=== PATIENT | female | born 1965 | race African-American/Black ===

== ENCOUNTER → 2018-10-04 10:00 | Outpatient (CLI) | payer OTHER | END | disposition home or self-care (01) | LOC: D.RAD 10:00 | DX: J44.9 Chronic obstructive pulmonary disease, unspecified (principal); R13.10 Dysphagia, unspecified ==

== ENCOUNTER 2018-10-10 07:20 | Day surgery (SDC) | payer OTHER ==
[2018-10-09 11:37] LABS: HEMOGLOBIN 13.2 g/dL (12-16); MCH 27.6 pg (26.0-34.0); MCV 83.7 fL (80.0-100.0); MEAN PLATELET VOLUME 9.9 fL (7.4-10.4); RBC 4.78 10x6/uL (4.00-5.40); RDW 13.8 % (11.5-14.5); WBC 5.2 10x3/uL (4.8-10.8)
[~2018-10-10] VITALS: Ht 170.2 cm; Wt 102.5 kg
[~2018-10-10 07:20] MED LIST: CYCLOBENZAPRINE10 MG PO; EZFE 200200 MG PO; HYDROCHLOROTHIA25 MG PO; REGLAN10 MG PO; ROBAXIN500 MG PO; ULTRAM50 MG PO
[2018-10-10 07:54] VITALS: BP 137/81; Ht 170.2 cm; Wt 102.5 kg
[2018-10-10] MEDS ORDERED: HYDROCODON-ACE1 EAC7 PO (12:25)
--- NOTE | 2018-10-10 13:35 | NUR ---
REC'D FROM RR. NO FAMILY CURRENTLY AT BEDSIDE. RABIAI STRIPS CDI TO ABD. GRAPE JUICE BROUGHT TO PT.
--- NOTE | 2018-10-10 14:05 | NUR ---
FAMILY AT BEDSIDE. FL TRAY BROUGHT TO PT. NO C/O VOICED.
--- NOTE | 2018-10-10 14:35 | NUR ---
TOLERATED DIET. STILL HAS NOT VOIDED.
--- NOTE | 2018-10-10 14:41 | NUR ---
DR SEGUNDO IN TALKING WITH PATIENT AND FAMILY.
--- NOTE | 2018-10-10 15:45 | NUR ---
AMBULATED TO BATHROOM AND VOIDED WITHOUT DIFFICULTY. IV DC'D WITH CATHETER INTACT. SMALL AMOUNT OF DRAINAGE FROM INCISION AT [place] AREA. DRESSING APPLIED TO SITE.
--- NOTE | 2018-10-10 15:50 | NUR ---
WRITTEN AND VERBAL DC INST. GIVEN TO PT. VERBALIZED UNDERSTANDING.
--- NOTE | 2018-10-10 16:05 | NUR ---
DC'D HOME WITH FAMILY VIA PRIVATE VEHICLE. TAKEN TO VEHICLE VIA WC. STABLE AT TIME OF DC.
== END 2018-10-10 16:05 | disposition home or self-care (01) ==
LOC: D.OPS 07:20 → D.PAN 09:30 → D.OPS 16:05
PROVIDERS: Anesthesiology
DX: Z46.51 Encounter for fitting and adjustment of gastric lap band (principal); E66.01 Morbid (severe) obesity due to excess calories; I10 Essential (primary) hypertension; R13.10 Dysphagia, unspecified; K21.9 Gastro-esophageal reflux disease without esophagitis; Z68.35 Body mass index [BMI] 35.0-35.9, adult; Z01.812 Encounter for preprocedural laboratory examination

== ENCOUNTER → 2018-10-30 08:34 | Outpatient (CLI) | payer OTHER ==
[~2018-10-30] VITALS: Ht 170.2 cm; Wt 98.0 kg
[~2018-10-30 08:34] MED LIST changes: +HYDROCODON-ACE1 EAC7 PO
[2018-10-30 10:18] VITALS: Ht 170.2 cm; Wt 98.0 kg
== END | disposition home or self-care (01) ==
LOC: D.FANS 08:34
DX: E66.01 Morbid (severe) obesity due to excess calories (principal)

== ENCOUNTER 2018-12-11 08:20 | Outpatient (CLI) | payer OTHER ==
[2018-10-30 10:18] VITALS: BMI 33.8
== END 2018-12-11 09:25 | disposition home or self-care (01) ==
LOC: D.OPS 08:20 → D.RAD 10:00 → D.OPS 12-13 11:00
PROVIDERS: ATTEND Surgery
DX: E66.01 Morbid (severe) obesity due to excess calories (principal); Z01.812 Encounter for preprocedural laboratory examination

== ENCOUNTER 2019-05-07 17:58 | Inpatient (IN) | payer OTHER ==
[~2019-05-07] VITALS: Ht 170.2 cm; Wt 110.9 kg
[2019-05-10] MEDS ORDERED: K-TAB10 MEQ PO (09:44)
[2019-05-10 10:33] LABS: HEMOGLOBIN 13.9 g/dL (12-16); MCH 27.6 pg (26.0-34.0); MCHC 33.9 g/dL (31.0-37.0); MCV 81.5 fL (80.0-100.0); MEAN PLATELET VOLUME 9.5 fL (7.4-10.4); RBC 5.03 10x6/uL (4.00-5.40); RDW 14.6 % (11.5-14.5); WBC 6.1 10x3/uL (4.8-10.8)
[2019-05-10 10:41] LABS: CALC OSMOLALITY 274 mosm/kg (275-300); CALCIUM 9.1 mg/dL (8.5-10.1); CARBON DIOXIDE 29.5 mmol/L (21.0-32.0); CHLORIDE - SERUM 100 mmol/L (98-107); CREATININE - SERUM 0.8 mg/dL (0.6-1.3); GLUCOSE 95 mg/dL (74-106); POTASSIUM - SERUM 3.5 mmol/L (3.5-5.1); SODIUM 138 mmol/L (136-145); UREA NITROGEN 11 mg/dL (7-18); eGFR NON AFRICAN AMERICAN 79 mL/min (90-120)
[2019-05-13 06:39] VITALS: BP 152/96; BMI 39.5
--- NOTE | 2019-05-13 12:09 | NUR ---
REC'D TO ROOM 2225 AWAKE AND ALERT. RESP EVEN AND UNLABORED WITH NO DISTRESS NOTED. CAN EXPRESS NEEDS AND WANTS. STERI STRIPS NOTED TO 6 LAPS SITED TO ABD. C/O ABD PAIN AT THIS TIME. ASSESSMENT COMPLETED. VS PER PROTOCOL. C/L UIN REACH AT BEDSIDE.
[2019-05-13 12:19] VITALS: BP 175/96
--- NOTE | 2019-05-13 13:18 | NUR ---
PRODUCTION EXPEDITER STARTED D/T C/O ABD PAIN RATING 8/10 ON PAIN SCALE. C/L AND AT BEDSIDE.
[2019-05-13 13:48] VITALS: BP 123/74; Ht 170.2 cm; Wt 110.9 kg
[2019-05-13 17:18] VITALS: BP 134/89
[2019-05-13 21:15] VITALS: BP 124/76
[2019-05-14 01:53] VITALS: BP 106/69
--- NOTE | 2019-05-14 03:48 | NUR ---
I have reviewed this patient and I concur with the Shift Assessment completed by the Licensed Practical Nurse today this shift.
[2019-05-14 05:36] VITALS: BP 107/72
--- NOTE | 2019-05-14 05:50 | NUR ---
AMBULATED LATE IN THE EVENING THIS SHIFT, RESTED WELL AFTERWARDS, ONLY VOICED CONCERN ONCE WHEN WASTE DISPOSAL LEAKAGE TESTER NEEDED TO BE CHANGED. HAD NO FURTHER COMPLAINTS, FAMILY REMAINED AT SIDE. WILL NOTE ANY CHANGE.
[2019-05-14 06:58] LABS: BASOPHILS 0.1 % (0-2); EOSINOPHILS 0 % (0-7); HEMATOCRIT 27.5 % (36.0-48.0); HEMOGLOBIN 8.9 g/dL (12-16); IMMATURE GRANULOCYTES 0.3 % (0-5); LYMPHOCYTES 19.1 % (15-50); MCH 26.8 pg (26.0-34.0); MCHC 32.4 g/dL (31.0-37.0); MCV 82.8 fL (80.0-100.0); MEAN PLATELET VOLUME 9.9 fL (7.4-10.4); NEUTROPHILS 68.5 % (40-80); PLATELET COUNT 286 10x3/uL (130-400); RBC 3.32 10x6/uL (4.00-5.40); RDW 14.8 % (11.5-14.5); WBC 8.6 10x3/uL (4.8-10.8)
[2019-05-14 07:09] LABS: ALBUMIN 2.6 g/dL (3.4-5.0); BILIRUBIN - TOTAL 0.46 mg/dL (0.2-1.3); CARBON DIOXIDE 27.5 mmol/L (21.0-32.0); POTASSIUM - SERUM 4.5 mmol/L (3.5-5.1); PROTEIN - SERUM 6.3 g/dL (6.4-8.2)
--- NOTE | 2019-05-14 07:10 | NUR ---
PATIENT RECIEVED RESTING IN BED, PATIENTIS DAY 1 POST GASTRIC SLEEVE. EDUCATION PROVIDED ON PHASE 1 DIET. BANDAIDS INTACT TO ABDOMINAL INCISIONS
--- NOTE | 2019-05-14 07:48 | NUR ---
Nutrition education: Reviewed Phase 1 bariatric diet. Answered pts questions. Pt seems to have a good understanding of diet restrictions. Provided printed PHase 1 diet and PHase 2 diet progression. Thank you for the consult.
[2019-05-14 08:59] VITALS: BP 133/74
[2019-05-14 11:24] LABS: HEMATOCRIT 26.6 % (36.0-48.0); HEMOGLOBIN 8.6 g/dL (12-16)
[2019-05-14 14:23] VITALS: BP 133/74
[2019-05-14 16:50] LABS: HEMATOCRIT 25.1 % (36.0-48.0)
[2019-05-14 17:51] VITALS: BP 139/85
--- NOTE | 2019-05-14 18:20 | NUR ---
FIRST UNIT OF PRBC STARTED. PATIENT EDUCATED ON S/S OF INTERACTION TO REPORT. NO ISSUES AT THIS TIME, WILL CONT TO MONITOR
--- NOTE | 2019-05-14 19:32 | NUR ---
UP IN BED WITH TELEVISION ON, BLOOD IS INFUSING TO RIGHT HAND VIA ORDERS, NO S/S OF ANY DISTRESS AT THIS TIME. WILL NOTE ANY CHANGE.
[2019-05-14 21:16] VITALS: BP 151/78
[2019-05-14 22:44] LABS: HEMATOCRIT 24.2 % (36.0-48.0); HEMOGLOBIN 8.1 g/dL (12-16)
--- NOTE | 2019-05-14 23:25 | NUR ---
SECOND UNIT OF PRBC STARTING INFUSING PER ORDERS. VS ARE WNL. WILL NOTE ANY CHANGE.
[2019-05-15] VITALS (7 sets, daily range): BP systolic 138–188; BP diastolic 82–99
--- NOTE | 2019-05-15 03:56 | NUR ---
RESTED FAIR THIS SHIFT, FAMILY MEMBER STAYED AT BEDSIDE THIS SHIFT, DENIES ANY NEEDS AT THIS TIME. SHOWS NO S/S OF ANY ACUTE DISTRESS OR PAIN. WILL NOTE ANY CHANGE.
[2019-05-15 07:38] LABS: BASOPHILS 0.2 % (0-2); EOSINOPHILS 0.5 % (0-7); HEMATOCRIT 26.8 % (36.0-48.0); HEMOGLOBIN 8.7 g/dL (12-16); IMMATURE GRANULOCYTES 0.3 % (0-5); LYMPHOCYTES 12.6 % (15-50); MCH 26.6 pg (26.0-34.0); MCHC 32.5 g/dL (31.0-37.0); MEAN PLATELET VOLUME 10.2 fL (7.4-10.4); MONOCYTES 11.5 % (2-11); NEUTROPHILS 74.9 % (40-80); PLATELET COUNT 251 10x3/uL (130-400); RBC 3.27 10x6/uL (4.00-5.40)
[2019-05-15 07:58] LABS: ALBUMIN 2.7 g/dL (3.4-5.0); ANION GAP 12.5 mmol/L (8-16); BILIRUBIN - TOTAL 0.78 mg/dL (0.2-1.3); CALCIUM 8.2 mg/dL (8.5-10.1); CARBON DIOXIDE 27.2 mmol/L (21.0-32.0); CREATININE - SERUM 0.9 mg/dL (0.6-1.3); POTASSIUM - SERUM 3.7 mmol/L (3.5-5.1); PROTEIN - SERUM 6.5 g/dL (6.4-8.2)
[2019-05-15 09:08] LABS: INR 1.12 (0.85-1.17); PROTIME 13.9 SECONDS (11.6-15.0)
[2019-05-15 09:09] LABS: APTT 32.4 SECONDS (22.8-39.4)
--- NOTE | 2019-05-15 21:20 | NUR ---
RESTING QUEITLY WITH NO COMPLAINTS VOICED. RESP EVEN AND UNALBORED. NO DISTRESS NOTED. IV TO RIGHT HAND INTACT WITHOT REDNESS OR EDEMA NOTED. STERI STRIPS INTACT LAP SITES X 4. BANDAID INTACT TO MIDLINE INCISION WITHOUT DRAINAGE NOTED. CL IN REACH. AT BEDSIDE.
--- NOTE | 2019-05-16 04:00 | NUR ---
I have reviewed this patient and I concur with the Shift Assessment completed by the Licensed Practical Nurse today this shift.
[2019-05-16 05:36] VITALS: BP 151/84
--- NOTE | 2019-05-16 07:54 | NUR ---
PT RESTING IN BED WITH EYES OPEN. REPORTS PAIN 03/04 REQUESTING SOMETHING FOR PAIN, ADMINSTERED MORPHINE PER DRS ORDERS. CURRENTLY RCVING 2L VIA NC. IV LOCATED TO RIGHT HAND RUNNING LR@ 30ML. NO S/S OF DISTRESS, PT DENIES ANY FURTHER NEEDS AT THIS TIME. WILL CONT TO MONITOR.
[2019-05-16 08:27] LABS: BASOPHILS 0.2 % (0-2); EOSINOPHILS 1.2 % (0-7); HEMATOCRIT 27.4 % (36.0-48.0); HEMOGLOBIN 9.1 g/dL (12-16); IMMATURE GRANULOCYTES 0.3 % (0-5); LYMPHOCYTES 14.1 % (15-50); MCH 27.1 pg (26.0-34.0); MCHC 33.2 g/dL (31.0-37.0); MCV 81.5 fL (80.0-100.0); MEAN PLATELET VOLUME 9.5 fL (7.4-10.4); MONOCYTES 9.3 % (2-11); NEUTROPHILS 74.9 % (40-80); PLATELET COUNT 231 10x3/uL (130-400); RBC 3.36 10x6/uL (4.00-5.40); RDW 14.7 % (11.5-14.5); WBC 12.2 10x3/uL (4.8-10.8)
[2019-05-16 08:39] LABS: CALC OSMOLALITY 278 mosm/kg (275-300); CALCIUM 8.7 mg/dL (8.5-10.1); CARBON DIOXIDE 28.8 mmol/L (21.0-32.0); CHLORIDE - SERUM 103 mmol/L (98-107); CREATININE - SERUM 0.8 mg/dL (0.6-1.3); GLUCOSE 94 mg/dL (74-106); POTASSIUM - SERUM 3.5 mmol/L (3.5-5.1); SODIUM 141 mmol/L (136-145); UREA NITROGEN 7 mg/dL (7-18); eGFR NON AFRICAN AMERICAN 79 mL/min (90-120)
[2019-05-16 09:01] VITALS: BP 155/91
--- NOTE | 2019-05-16 09:33 | NUR ---
NUTRITION F/U RECIEVED VERBAL FROM DR. SEGUNDO TO ADVANCE PT TO PHASE II BARIATRIC DIET WITH ENSURE PRN TO SIP ON. ENTERED INTO DIET ORDER, SPOKE WITH PT AND EXPLAINED DIET AND CAUTIONED SMALL AMTS DIET AND ENSURE. SPOKE WITH NURSING. PROVIDED ENSURE IN REFRIGERATOR FOR NURSING TO GIVE SMALL AMTS BETWEEN MEALS. RD FOLLOWING
[2019-05-16 12:48] VITALS: BP 137/92
[2019-05-16 12:52] LABS: PROTEIN - BODY FLUID 4.1 G/DL
[2019-05-16 16:39] VITALS: BP 160/91
[2019-05-16 21:43] VITALS: BP 169/87
--- NOTE | 2019-05-17 04:45 | NUR ---
RIGHT HAND IV LEAKING. REMOVED CATHETER INTACT. 22 G IV RESITED TO RIGHT FOREARM BY TERRIE BOWDEN. IV FLUIDS RESUMED. PT AMBULATED 1 LAP AROUND NURSE STATION.
[2019-05-17 04:59] VITALS: BP 157/86
--- NOTE | 2019-05-17 07:35 | NUR ---
PT RESTING IN BED WITH EYES OPEN, AT THE BEDSIDE. CURRENTLY RCVING 2L VIA NC. IV LOCATED TO RIGHT FOREARM RUNNING LR @ 30ML. DENIES ANY NEEDS AT THIS TIME, WILL CONTINUE TO MONITOR.
[2019-05-17 09:01] VITALS: BP 161/85
[2019-05-17] MEDS ORDERED: HYDROCODON-ACE1 EAC7 PO (12:30)
[2019-05-17] MEDS ORDERED: LEVOFLOXACIN500 MG PO (12:30)
[2019-05-17] MEDS ORDERED: ATROVENT 0.02%2.5 ML UPD (12:31)
[2019-05-17] MEDS ORDERED: Xopenex 0.63 MG INH UPD (12:31)
[2019-05-17 13:26] VITALS: BP 159/85
[2019-05-17] MEDS ORDERED: ALBUTEROL SULF8.5 GM INH (13:41)
--- NOTE | 2019-05-17 14:07 | MORECARE ---
CASE MANAGEMENT DISCHARGE SUMMARY PATIENT: MARGARET DOMINGUEZ UNIT: [id number] ADM DATE: 05/13/19 AGE: 53 : 61 SEX: F ROOM/BED: D.2225 AUTHOR: MIGUELINA GREEN PHYSICIAN: REFERRING PHYSICIAN: MILADY SEGUNDO MD DATE OF SERVICE: 05/17/19 Discharge Plan Patient Name: MARGARET DOMINGUEZ Facility: [facility]:[place] : 1965 Planned Disposition: Home Anticipated Discharge Date: Discharge Date: Expected LOS: Initial Reviewer: [email or web address] Initial Review Date: 05/13/2019 Generated: 05/17/19 3:06 pm Comments DCP- Discharge Planning Updated by [email or web address]: Nisa Roberts on 05/17/19 12:[address] Patient Name: MARGARET DOMINGUEZ Admission Status: Elective Accout number: [id number] Admission Date: 05-13-2019 : 1965 Admission Diagnosis:MORBID (SEVERE) OBESITY DUE TO EXCESS CALORIES Attending: MILADY SEGUNDO Current LOS: 4 Anticipated DC Date: Planned Disposition: Primary Insurance: [facility] PPO Discharge Planning Comments: PATIENT FAILED WALK TEST BUT INSURANCE DOESN'T COVER HER OXYGEN. I SPOKE WITH COTY WITH [facility] AND SHE SPOKE WITH PATIENT AND THEY WILL BRING HER OXYGEN TODAY BEFORE DISCHARGE.. Machine Designer: Nisa Roberts Patient Name: MARGARET DOMINGUEZ Page [phone] at 1407 All edits/amendments must be made on the electronic document DICTATION DATE: 05/17/191405 YARN HANDLER: EMA 05/17/19 1406 RPT#: [id number] DC DATE: STATUS: ADM IN [facility] [address] [place] [address] END OF REPORT
--- NOTE | 2019-05-17 15:26 | NUR ---
DC PAPERWORK COMPLETE, IV ANTIBIOTIC INFUSING AND HAD TO RUN TO TOWN AND WILL BE BACK SHORTLY TO PICK HER UP.
--- NOTE | 2019-05-23 08:12 | MORECARE ---
CASE MANAGEMENT DISCHARGE SUMMARY PATIENT: MARGARET DOMINGUEZ UNIT: [id number] ADM DATE: 05/13/19 AGE: 53 : 61 SEX: F ROOM/BED: D.2225 AUTHOR: MIGUELINA GREEN PHYSICIAN: REFERRING PHYSICIAN: MILADY SEGUNDO MD DATE OF SERVICE: 05/23/19 Discharge Plan Patient Name: MARGARET DOMINGUEZ Facility: [facility]:[place] : 1965 Planned Disposition: Home Anticipated Discharge Date: Discharge Date: 05/17/2019 Expected LOS: 0 Initial Reviewer: [email or web address] Initial Review Date: 05/13/2019 Generated: 05/23/19 9:12 am Comments DCP- Discharge Planning Updated by [email or web address]: Nisa Roberts on 05/17/19 12:[address] Patient Name: MARGARET DOMINGUEZ Admission Status: Elective Accout number: [id number] Admission Date: 05-13-2019 : 1965 Admission Diagnosis:MORBID (SEVERE) OBESITY DUE TO EXCESS CALORIES Attending: MILADY SEGUNDO Current LOS: 4 Anticipated DC Date: Planned Disposition: Primary Insurance: [facility] PPO Discharge Planning Comments: PATIENT FAILED WALK TEST BUT INSURANCE DOESN'T COVER HER OXYGEN. I SPOKE WITH COTY WITH [facility] AND SHE SPOKE WITH PATIENT AND THEY WILL BRING HER OXYGEN TODAY BEFORE DISCHARGE.. Car Painter: Nisa Roberts Last DP export: 05/17/19 1:07 p Patient Name: MARGARET DOMINGUEZ Page [phone] at 0812 All edits/amendments must be made on the electronic document DICTATION DATE: 05/23/19811 SURGICAL DEVICE SALES REPRESENTATIVE: DM 05/23/19811 RPT#: [id number] DC DATE:05/17/19 STATUS: DIS IN [facility] [address] [place] [address] END OF REPORT
== END 2019-05-17 16:33 | disposition home or self-care (01) | DRG 619 ==
LOC: D.SDCHOLD 05-13 05:54 → D.MS 05-13 05:54 → D.SDCHOLD 05-13 08:00 → D.MS 05-13 11:53
PROVIDERS: Anesthesiology; Internal Medicine Pulmonary Disease; ADMIT Surgery; ATTEND Surgery
PROC: 0BQT4ZZ Repair Diaphragm, Percutaneous Endoscopic Approach (ICD-10-PCS; 2019-05-13)
PROC: 0DB64Z3 Excision of Stomach, Percutaneous Endoscopic Approach, Vertical (ICD-10-PCS; principal; 2019-05-13 08:00)
PROC: 0W9B3ZZ Drainage of Left Pleural Cavity, Percutaneous Approach (ICD-10-PCS; 2019-05-16)
DX: E66.01 Morbid (severe) obesity due to excess calories (principal); J18.1 Lobar pneumonia, unspecified organism; D62 Acute posthemorrhagic anemia; J90 Pleural effusion, not elsewhere classified; Z68.38 Body mass index [BMI] 38.0-38.9, adult; K44.9 Diaphragmatic hernia without obstruction or gangrene; I10 Essential (primary) hypertension; K21.9 Gastro-esophageal reflux disease without esophagitis; M19.90 Unspecified osteoarthritis, unspecified site

== ENCOUNTER → 2019-05-24 10:03 | Outpatient (CLI) | payer OTHER ==
[2019-05-13 13:48] VITALS: BMI 38.3
[~2019-05-24 10:03] MED LIST changes: +ALBUTEROL SULF8.5 GM INH; +ATROVENT 0.02%2.5 ML UPD; +K-TAB10 MEQ PO; +LEVOFLOXACIN500 MG PO; +Xopenex 0.63 MG INH UPD
== END | disposition home or self-care (01) ==
LOC: D.RAD 10:03
PROVIDERS: ATTEND Surgery
DX: J90 Pleural effusion, not elsewhere classified (principal)

== ENCOUNTER → 2020-01-31 12:56 | Outpatient (CLI) | payer OTHER ==
[2019-05-13 13:48] VITALS: BMI 38.3
== END | disposition home or self-care (01) ==
LOC: D.US 12:56
PROVIDERS: ATTEND Surgery
DX: D17.1 Benign lipomatous neoplasm of skin and subcutaneous tissue of trunk (principal)